=== PATIENT | female | born 1980 | race African-American/Black ===

== ENCOUNTER → 2017-03-07 | Outpatient (CLI) | payer OTHER ==
--- NOTE | ~2017-03-07 | CR63 ---
[facility] A Service of [facility] RADIOLOGY TEXT RESULTS PATIENT: GORDON RIVERA LOCATION: [facility] : 84 UNIT #: [id number] AGE: [address]: AMBERLY KAUR SEX: F ORDER DR: [id number] [facility] [address] [place], [place] [address] [id number] O MR#: [id number] Acc #: [id number] NAME: GORDON RIVERA : 1980 SEX: F STUDY DATE/TIME: 03/07/2017 11:19 UNIT: [facility] ROOM: STUDY DESCRIPTION: CR Chest 2 View Attending Physician: Melita Ramos Referring Physician: Melita Ramos Ordering Physician: Melita Ramos Primary Care Physician: Kelly Moreno M.D. MEDICAL IMAGING REPORT This report is preliminary unless electronic signature is present EXAM Chest PA and lateral 03/07/2017 HISTORY Preop oral surgery FINDINGS The heart is normal in size. The lungs are clear. There are no pleural effusions. Scoliosis of the thoracic spine is noted. IMPRESSION No active pulmonary disease. Dictated by... Balwinder Bowers M.D. THIS IS AN ELECTRONICALLY VERIFIED REPORT Balwinder Bowers M.D. at 03/08/2017 7:22 AM KRT/to TD: 03/07/2017 23:20 JOB #: [id number] MEDICAL IMAGING REPORT Page 1 of 1 COPY
--- NOTE | ~2017-03-07 | EKG ---
PATIENT: GORDON RIVERA UNIT #: [id number] Ventricular Rate: 73 BPM Atrial Rate: 73 BPM P-R Interval: 144 ms QRS Duration: 70 ms Q-T Interval: 370 ms QTC Calculation(Bezet): 407 ms P [employer] [place]: 71 degrees Calculated R [employer] [place]: 62 degrees Calculated T [employer] [place]: 37 degrees Diagnosis Line: Normal sinus rhythm Diagnosis Line: Normal ECG Diagnosis Line: No previous ECGs available Diagnosis Line: Confirmed by DENI SPICER MD ([id number]) on Diagnosis Line: 03/07/2017 12:33:24 PM INTERPRETING MD: DANNIELLE ROMAN
== END | disposition home or self-care (01) ==
LOC: CRAD 10:54
DX: Z01.818 Encounter for other preprocedural examination (principal)
CPT/HCPCS: 71020; 93005